=== PATIENT | female | born 1975 | race Hispanic/Latino ===

== ENCOUNTER 2023-02-22 16:44 | Emergency (ER) | payer SELFPAY ==
--- OUTSIDE RECORDS SUMMARY | 2023-02-22 16:48 | XMS REPORT | Continuity of Care Document ---
:1975 Author Organization [facility] t Address [address] [facility] [place] [address] Care Team Providers Name Role Phone Vance Zepeda DO Attending Clinician Lidia Ayala Attending Clinician [phone] LIDIA GOMEZ Attending Clinician Unavailable Doctor Unassigned, [place] Attending Clinician Unavailable CHERYLE CARTER Attending Clinician Unavailable Cheryle Carcamo Attending Clinician Payers Payer Name Policy Type Policy Number Effective Date Expiration Date S ource Problems Condition Condition Condition Status Onset Resolution Last Treating Co mments Source Name Details Category Date Date Treatment Clinician Date Other Other Disease Active 2020-0 Univers general general 8-28 ity of counseling counseling 00:00: Errol miller and advice and advice 00 [place] dical for [facility] contracept contracept rosemarie rosemarie management management History of History of Disease Active 2020-0 [place] tubal tubal 8-28 ity of ligation ligation 00:00: [address] Genital Genital Disease Active 2020-0 Univers warts warts 8-28 ity of 00:00: [place] 00 [facility] Pelvic Pelvic Disease Active 2019-0 Univers mass in mass in 8-13 ity of female female 00:00: [place] 00 [facility] Trichomona Trichomona Disease Active 2019-0 U nivers l l 8-01 ity of vulvovagin [place] 00 [facility] Menorrhagi Menorrhagi Disease Active 2019-0 U nivers a with a with 7-30 ity of regular regular 00:00: [place] cycle cycle 00 [facility] Well woman Well woman Disease Active 2019-0 U nivers exam exam 7-30 ity of 00:00: [place] 00 Medical Branch Breast Breast Disease Active 2019- Univers cancer cancer 7-30 [place] of screening [place] 00 Medical mammogram mammogram Bran ch Well woman Well woman Disease Active 2019- U nivers exam exam 7-30 ity of 00:00: [place] 00 Medical Branch Obesity Obesity Disease Active 2019- Univers (BMI (BMI 7-30 ity of 30-39.9) 30-39.9) 00:00: Medical Branch Tobacco Tobacco Disease Active 2019- Univers use use 7-30 ity of disorder disorder 00:00: [place] 00 Medical Branch H/O tubal H/O tubal Disease Active Uni vers ligation ligation 7-30 ity of 00:00: [place] [facility] Marijuana Marijuana Disease Active Uni vers abuse abuse 730 ity of 00:00: [place] 00 Medical Branch Menorrhagi Menorrhagi Disease Active U nivers a with a with 7-30 ity of regular regular 00:00: [place] cycle cycle 00 Medical Branch Breast Breast Disease Active Univers complaint complaint 730 ity of 00:00: [place] 00 Medical Branch Need for Need for Disease Active Unive rs diphtheria diphtheria 730 it y of -tetanus-p -tetanus[place]p [place] ertussis ertussis 00 Medica l (Tdap) (Tdap) Branch vaccine vaccine Allergies, Adverse Reactions, Alerts Allergy Allergy Status Severity Reaction(s) Onset Inactive Treating Comm ents Source Name Type Date Date Clinician NO KNOWN Drug Active Univers ALLERGIE Class ity of S [facility] Social History Social Habit Start Date Stop Date Quantity Comments Source History of tobacco 2003-12-13 Cigarette Smoker University of use 00:00:00 [facility] Exposure to Not sure [facility] SARS-CoV-2 (event) [facility] Tobacco use and 2020-01-11 2020-01-11 Never used Universit y of exposure 00:00:00 00:00:00 [facility] Cigarettes smoked 2020-01-11 2020-01-11 Univers ity of current (pack per 00:00:00 00:00:00 [place] ) - Reported Branch Alcohol intake 2020-01-11 2020-01-11 Current drinker Unive rsity of 00:00:00 00:00:00 of alcohol [facility] (finding) Branch History SDOH 2020-01-11 2020-01-11 2 University o f Alcohol Frequency 00:00:00 00:00:00 [place] M edical Branch [facility] 2020-01-11 2020-01-11 [address] [place] o f Alcohol Std Drinks 00:00:00 00:00:00 [place] [facility] History [facility] 2020-01-11 2020-01-11 99 [place] o f Alcohol Binge 00:00:00 00:00:00 [facility] al Branch Alcohol Comment 2018-12-12 2018-12-12 occasional Universit y of 00:00:00 00:00:00 [facility] Sex Ass[birth year] At [birth year] Universit y of 00:00:00 00:00:00 [facility] Smoking Status Start Date Stop Date Source Current every day smoker 2020-01-11 00:00:00 Uni versity [facility] Medications Ordered Filled Start Stop Current Ordering Indication Dosage Frequency Signature Comments Components Source Medication Medication Date Date Medication? Clinician (SIG) Name Name imiquimod 5 2020-0 Yes [id number] 1{packe Apply 1 Univers % cream 8-28 t} Each to ity of 00:00: [facility] 00 every Medical Tuesday, Branch Tuesday and Tuesday. At night imiquimod 5 2020-0 Yes [id number] 1{packe Apply 1 Univers % cream 8-28 t} Each to ity of 00:00: [facility] 00 every Medical Tuesday, Branch Tuesday and Tuesday. At night imiquimod 5 2020-0 Yes [id number] 1{packe Apply 1 Univers % cream 8-28 t} Each to ity of 00:00: [facility] 00 every Medical Tuesday, Branch Tuesday and Tuesday. At night imiquimod 5 2020-0 Yes [id number] 1{packe Apply 1 Univers % cream 8-28 t} Each to ity of 00:00: [facility] 00 every Medical Tuesday, Branch Tuesday and Tuesday. At night imiquimod 5 2020-0 Yes [id number] 1{packe Apply 1 Univers % cream 8-28 t} Each to ity of 00:00: [facility] 00 every Medical Tuesday, Branch Tuesday and Tuesday. At night imiquimod 5 2020-0 2020- No [id number] 1{packe Apply 1 Univers % cream 01-10 t} Each to ity of 00:00: 00:00 [facility] 00 :00 every Medical Tuesday, Branch Tuesday and Tuesday. At night imiquimod 5 2020- No [id number] 1{packe Apply 1 Univers % cream 01-10 t} Each to ity of 00:00: 00:00 [facility] 00 :00 every Medical Tuesday, Branch Tuesday and Tuesday. At night metroNIDAZO 2019- No [id number] 2000mg Take 4 Univers LE (FLAGYL) 12-14 tablets by i ty of 500 mg 00:00: 04:59 [place] tablet [place] :00 now for 1 Medical dose. Story metroNIDAZO 2018- No [id number] 2000mg Take 4 Univers LE (FLAGYL) 12-14 tablets by i ty of 500 mg 00:00: 04:59 [place] tablet 00 :00 now for 1 Medical dose. Story No known No [facility] No known No [facility] No known No [facility] No known No [facility] No [facility] No [facility] No known No Univers medications [facility] No known No Univers medications [facility] No known No Univers medications [facility] Vital Signs Vital Name Observation Time Observation Value Comments Source Systolic blood 2020-01-11 13:09:00 118 mm[Hg] Univer sity [facility] Diastolic blood 2020-01-11 13:09:00 80 [facility] 2020-01-11 13:09:00 73 [facility] Body temperature 2020-01-11 13:09:00 36.56 Cherise [facility] Respiratory rate 2020-01-11 13:09:00 16 /min [facility] Body height 2020-01-11 13:09:00 170.2 cm [facility] Body weight 2020-01-11 13:09:00 114.851 kg [facility] BMI 2020-01-11 13:09:00 39.66 kg/m2 Universi ty of [place] [facility] Systolic blood 2018-12-26 16:04:00 133 mm[Hg] Univer sity of pressure [place] [facility] Diastolic blood 2018-12-26 16:04:00 88 mm[Hg] Unive rsity of pressure [facility] Branch Heart rate 2018-12-26 16:04:00 72 /min Universi ty of [facility] Branch Body temperature 2018-12-26 16:04:00 36.17 Cherise Univ ersity of [place] [facility] Respiratory rate 2018-12-26 16:04:00 16 /min Univ ersity of [facility] Branch Body height 2018-12-26 16:04:00 170.2 cm Universi ty of [place] [facility] Body weight 2018-12-26 16:04:00 115.837 kg Universi ty of [place] [facility] BMI 2018-12-26 16:04:00 40.00 kg/m2 Universi ty of [place] [facility] Systolic blood 2018-12-12 18:40:00 122 mm[Hg] Univer sity of pressure [place] [facility] Diastolic blood 2018-12-12 18:40:00 78 mm[Hg] Unive rsity of pressure [place] [facility] Heart rate 2018-12-12 18:40:00 62 /min Universi ty of [place] [facility] Body temperature 2018-12-12 18:40:00 36.56 Cherise Univ ersity of [place] [facility] Respiratory rate 2018-12-12 18:40:00 18 /min Univ ersity of [facility] Body height 2018-12-12 18:40:00 170.2 cm Universi ty of [place] [facility] Body weight 2018-12-12 18:40:00 115.781 kg Universi ty of [place] [facility] BMI 2018-12-12 18:40:00 39.98 kg/m2 Universi ty [facility] [place] [facility] Procedures Procedure Date / Time Performing Clinician Source Performed ASSIGNMENT OF BENEFITS 2020-01-11 12:55:47 Doctor Unassigned, No [facility] Name [facility] Branch TDAP (ADACEL) 2018-12-12 19:18:38 Cheryle Carter [facility] POCT TEST 2018-12-12 19:09:00 [facility] Encounters Start End Encounter Admission Attending Care Care Encounter Source Date/Time Date/Time Type Type Clinicians Facility Department ID 2020-08-23 2020-08-23 Outpatient [facility] [id number] Univers 12:30:00 12:30:00 ity [facility] 2020-08-02 2020-08-02 Outpatient [facility] [id number] Univers 12:15:00 12:15:00 ity [facility] 2020-07-31 2020-07-[address] [facility] [id number] Univers 00:00:00 00:00:00 Outreach Vance PRIMARY [id number] i ty of [facility] [id number] [place] [id number] [place] el[place] [address] Story 2020-04-16 2020-04-[address] [facility] [id number] Univers 00:00:00 00:00:00 Lidia Huitron SENIOR RESEARCH ENGINEER [id number] ity of REGIONAL [id number] [place] as MATERNAL [phone] Med ical & CHILD [address] [place] [address] 2020-04-14 2020-04-[address] [facility] [id number] Univers 09:15:00 09:15:00 LIDIA latif [facility] 2020-04-14 2020-04-[address] [facility] [id number] Univers 09:15:00 09:15:00 LIDIA mcdonald f [facility] 2020-02-26 2020-02-26 [facility] [id number] Univers 06:30:38 23:59:00 Encounter Lidia Huitron SPECIALTY [id number] ity of C[id number] [id number] [place] leeal [facility]CTORY [address] [facility] 2020-02-26 2020-02-[address] [facility] [id number] Univers 00:00:00 00:00:00 LIDIA marie o f [facility] 2020-01-14 2020-01-14 [facility] [id number] Univers 09:30:00 09:30:00 LIDIA latif [facility] 2020-01-11 2020-01-[address] [facility] [id number] Univers 07:58:01 09:02:48 Visit Lidia Huitron SENIOR RESEARCH ENGINEER [id number] ity of [facility] [id number] [place] MATERNAL [phone] [facility] ical & CHILD [address] [place] [address] 2020-01-11 2020-01-11 [facility] [id number] Univers 08:00:00 08:00:00 LIDIA frank harry latif [facility] 2020-01-11 2020-01-11 Orders Doctor HULL [id number] Univers 00:00:00 00:00:00 Only Unassigned, MICHOACANO [id number] ity of [place] [facility] [id number] [place] as [phone] [address] 2019-10-04 2019-10-04 [facility] [id number] Univers 00:00:00 00:00:00 CHERYLE marie [facility] 2019-10-03 2019-10-03 [facility] [id number] Univers 00:00:00 00:00:00 CHERYLE marie [facility] 2019-08-30 2019-08-30 [facility] [id number] Univers 00:00:00 00:00:00 CHERYLE marie [facility] 2019-08-06 2019-08-06 [facility] [id number] Univers 00:00:00 00:00:00 CHERYLE marie [facility] 2019-01-25 2019-01-[address] [facility] [id number] Univers 00:00:00 00:00:00 Cheryle Butler SENIOR RESEARCH ENGINEER [id number] it y of [facility] [id number] [place] MATERNAL [phone] [facility] [address] [place] [address] 2019-01-24 2019-01-24 [facility] [id number] [facility] 07:05:33 23:59:00 Encounter Cheryle Luke SPECIALTY [id number] ity of C[id number] [id number] [place] elmer SANON [address] [facility] 2018-12-26 2018-12-26 Office [facility] [id number] [facility] 10:52:24 11:26:43 Visit Cheryle Luke SENIOR RESEARCH ENGINEER [id number] it y of REGIONAL [id number] [place] MATERNAL [id number] Med ical & CHILD [address] [place] [address] 2018-12-14 2018-12-14 Telephone [facility] [id number] Univers 00:00:00 00:00:00 Cheryle Butler SENIOR RESEARCH ENGINEER [id number] it y of REGIONAL [id number] [place] MATERNAL [phone] Med ical & CHILD [address] [place] [address] 2018-12-14 2018-12-14 Telephone [facility] [id number] Univers 00:00:00 00:00:00 Cheryle Luke SENIOR RESEARCH ENGINEER [id number] it y of REGIONAL [id number] [place] MATERNAL [id number] Med ical & CHILD [address] [place] [address] 2018-12-13 2018-12-13 Telephone [facility] [id number] Univers 00:00:00 00:00:00 Cheryle Luke SENIOR RESEARCH ENGINEER [id number] it y of REGIONAL [id number] [place] MATERNAL [phone] Med ical & CHILD [address] [place] [address] 2018-12-12 2018-12-12 Office [facility] [id number] Univers 13:27:57 14:47:29 Visit Cheryle Butler SENIOR RESEARCH ENGINEER [id number] it y of REGIONAL [id number] [place] MATERNAL [phone] Med ical & CHILD [address] [place] [address] Results Test Description Test Time Test Comments Results Result Comments Source POCT TEST 2018-12-12 19:09:00 Test Item Value Reference Range Interpretation Comme nts POCT PREG (test code = 1605) Negative On board controls acceptable with C Line (test code = 3574) Yes POCT PREG LOT # (test code = 3575) POCT PREG TEST DATE (test code = 3576) [id number] 19:09:00 Test Item Value Reference Range Interpretation Comments POCT PREG (test code = 1605) Negative On board controls acceptable with C Yes Line (test code = 3574) POCT PREG LOT # (test code = 3575) POCT PREG TEST DATE (test code = 3576) [facility]
[2023-02-22] MEDS ORDERED: NITROGLYCERIN 0.4 MG/TAB SL ONE (18:17)
[2023-02-22] MEDS ORDERED: ASPIRIN 81 MG CHEWABLE TABLET ONE (18:17)
[2023-02-22 18:31] LABS: Absolute Lymphocytes (CBC) 3.4 K/uL (0.7-4.9); Hematocrit 41.2 % (36.0-45.0); Lymphocytes % 25.7 % (15.3-44.8); MCV 85.7 fL (80-100); MPV 8.5 fL (7.6-11.3); Platelets 374 thou/uL (152-406)
--- NOTE | 2023-02-22 18:41 | RAD REPORT ---
[facility] 6[facility]18 pm CLINICAL HISTORY: CHEST PAIN COMPARISON: No comparisons TECHNIQUE: Portable AP view of the chest. FINDINGS: The lungs are clear. No pneumothorax or effusion. The cardiomediastinal contours are unre markable. IMPRESSION: No acute cardiopulmonary process.
[2023-02-22 18:50] LABS: ALT/SGPT 33 U/L (13-56); AST/SGOT 20 U/L (15-37); Albumin 3.6 g/dL (3.4-5.0); Alkaline Phosphatase 130 U/L (45-117); BUN Blood Urea Nitrogen 9 mg/dL (7-18); Bicarbonate 24 mEq/L (21-32); Bilirubin Total 0.4 mg/dL (0.2-1.0); Glomerular Filtration Rate 72 ml/min (=/>90); Glucose Level 98 mg/dL (74-106); Magnesium 2.1 mg/dL (1.6-2.4); Potassium 3.3 mEq/L (3.5-5.1); Sodium Level 140 mEq/L (136-145)
[2023-02-22 18:54] LABS: Bilirubin Direct < 0.1 mg/dL (0-0.2); Bilirubin Indirect, Calculated ND mg/dL (0.2-0.8)
[2023-02-22] MEDS ORDERED: AMLODIPINE 10 MG TAB ONE (19:58)
--- NOTE | 2023-02-22 20:30 | ER ---
Nurse's Notes [facility] Name: Aurora Reynaga Age: 47 yrs Sex: Female : 1975 Arrival Date: 02/22/2023 Time: 16:44 Bed 15 Private MD: Diagnosis: Chest pain, unspecified;Essential (primary) hypertension Presentation: 02/22 16:58 Chief complaint:. Chief complaint: Patient states: Chest pains on/off for 3-4 days, nj1 today she checked her bp and was elevated. Never diagnosed with hypertension in the past. Denies chest pain as of right now. Coronavirus screen: Vaccine status: Patient reports receiving the 2nd dose of the covid vaccine. Ebola Screen: Patient denies travel to an Ebola-affected area in the 21 days before illness onset. Initial Sepsis Screen: Does the patient meet any 2 criteria? No. Patient's initial sepsis screen is negative. Does the patient have a suspected source of infection? No. Patient's initial sepsis screen is negative. Risk Assessment: Do you want to hurt yourself or someone else? Patient reports no desire to harm self or others. Onset of symptoms was February 17, 2023. 16:58 Method Of Arrival: Ambulatory [facility] 16:58 Acuity: RAFAT 3 nj1 Historical: - Allergies: 17:01 No Known Allergies; nj1 - PMHx: 17:01 None; nj1 - PSHx: 17:01 Cholecystectomy; nj1 - Immunization history:: Client reports receiving the 2nd dose of the Covid vaccine. - Social history:: Smoking status: Patient reports the use of cigarette tobacco products, Reported history of juuling and/or vaping. - Family history:: not pertinent. Screenin:28 [facility] ED Fall Risk Assessment (Adult) History of falling in the last 3 months, kc6 including since admission No falls in past 3 months (0 pts) Confusion or Disorientation No (0 pts) Intoxicated or Sedated No (0 pts) Impaired Gait No (0 pts) Mobility Assist Device Used No (0 pt) Altered Elimination No (0 pt) Score/Fall Risk Level 0 - 2 = Low Risk. Abuse screen: Denies threats or abuse. Denies injuries from another. Nutritional screening: No deficits noted. Tuberculosis screening: No symptoms or risk factors identified. Assessment: 18:29 General: Appears in no apparent distress. comfortable, Behavior is calm, cooperative, kc6 appropriate for age. Pain: Complains of pain in chest Pain does not radiate. Pain began 2-3 days ago. Neuro: Level of Consciousness is awake, alert, obeys commands, Oriented to person, place, time, situation, Appropriate for age. Cardiovascular: Reports chest pain, Heart tones S1 S2 present Capillary refill < 3 seconds Rhythm is sinus rhythm. Respiratory: Airway is patent Trachea midline Respiratory effort is even, unlabored, Respiratory pattern is regular, symmetrical, Denies shortness of breath. GI: No signs and/or symptoms were reported involving the gastrointestinal system. : No signs and/or symptoms were reported regarding the genitourinary system. EENT: No signs and/or symptoms were reported regarding the EENT system. Derm: No signs and/or symptoms reported regarding the dermatologic system. Skin is intact, is healthy with good turgor, Skin is pink, warm \T\ dry. Musculoskeletal: No signs and/or symptoms reported regarding the musculoskeletal system. Circulation, motion, and sensation intact. Capillary refill < 3 seconds, Range of motion: intact in all extremities. 19:12 Reassessment: Patient appears in no apparent distress at this time. Patient and/or jw7 family updated on plan of care and expected duration. Pain level reassessed. Patient is alert, oriented x 3, equal unlabored respirations, skin warm/dry/pink. Patient states feeling better. 20:41 Reassessment: Patient appears in no apparent distress at this time. No changes from [facility] previously documented assessment. Patient and/or family updated on plan of care and expected duration. Pain level reassessed. Patient is alert, oriented x 3, equal unlabored respirations, skin warm/dry/pink. Vital Signs: 16:58 BP 167 / 100; Pulse 77; Resp 18; Temp 98.4; Pulse Ox 100% ; Weight 120.2 kg; Height 5 nj1 ft. 7 in. ; Pain 0/10; 18:29 BP 157 / 97; Pulse 62; Resp 14 S; Pulse Ox 100% on R/A; Pain 0/10; kc6 19:30 BP 170 / 91; Pulse 71; Resp 20 S; Pulse Ox 100% on R/A; jw7 20:30 BP 160 / 90; Pulse 65; Resp 18 S; Pulse Ox 100% on R/A; jw7 16:58 Body Mass Index 41.50 (120.20 kg, 170.18 cm) nj1 16:58 Pain Scale: Adult nj1 18:29 Pain Scale: Adult kc6 ED Course: 16:49 Patient arrived in ED. kj1 16:54 Riki Davies MD is Attending Physician. rt 17:01 Triage completed. nj1 17:01 Arm band placed on left wrist. nj1 18:01 Bre Galeas RN is Primary Nurse. kc6 18:20 XRAY Chest (1 view) In Process Unspecified. EDMS 18:28 Patient has correct armband on for positive identification. Placed in gown. Bed in low kc6 position. Call light in reach. Side rails up X 1. Adult w/ patient. Client placed on continuous cardiac and pulse oximetry monitoring. NIBP monitoring applied. monitoring coordinator on. 18:28 Inserted saline lock: 22 gauge in right antecubital area, using aseptic technique. kc6 Blood collected. Patient maintains SpO2 saturation greater than 95% on room air. 19:53 Troponin High Sensitivity Sent. jw7 20:29 Haresh Montgomery MD is Referral Physician. rt 20:42 No provider procedures requiring assistance completed. IV discontinued, intact, jw7 bleeding controlled, No redness/swelling at site. Pressure dressing applied. 20:43 Provided Education on: discharge instructions, and medication usage. jw7 Administered Medications: 18:28 Drug: Aspirin PO Chewable Tablet 324 mg PO once; 81 mg tablets x 4 Route: PO; kc6 20:05 Follow up: Response: No adverse reaction jw7 19:53 Drug: amLODIPine PO 10 mg PO once Route: PO; jw7 20:43 Follow up: Response: No adverse reaction jw7 20:44 Not Given (Other Intervention Used): nitroglycerin0.4 mg Sublingual once; every five jw7 minute if needed x3 Medication: 20:43 VIS not applicable for this client. jw7 Outcome: 20:29 Discharge ordered by . rt 20:42 Discharged to home ambulatory, with family, jw7 20:42 Condition: stable 20:42 Discharge instructions given to patient, Instructed on discharge instructions, follow up and referral plans. medication usage, Demonstrated understanding of instructions, follow-up care, medications, Prescriptions given X 1, 20:44 Patient left the ED. jw7 Signatures: Dispatcher [employer] EDMS Almita Brock kj1 Edna Colon, RN RN jw7 Bre Galeas RN RN kc6 Riki Davies MD MD rt Karishma Baugh RN RN nj1 Corrections: (The following items were deleted from the chart) 19:57 19:12 Reassessment: Patient appears in no apparent distress at this time. No changes jw7 from previously documented assessment. Patient and/or family updated on plan of care and expected duration. Pain level reassessed. Patient is alert, oriented x 3, equal unlabored respirations, skin warm/dry/pink. jw7
--- NOTE | 2023-02-22 20:30 | EDPHYS ---
Physician Documentation [facility] Name: Aurora Reynaga Age: 47 yrs Sex: Female : 1975 Arrival Date: 02/22/2023 Time: 16:44 Bed 15 Private MD: ED Physician Riki Davies HPI: 02/22 19:35 This 47 yrs old Female presents to ER via Ambulatory with complaints of High rt Blood Pressure, Chest Pain. 19:36 Patient presents to the ED with chest pain started today. Patient states that the rt symptoms have improved, no longer has any chest pain. Does report having high blood pressure today at about 160s over 100s. No prior history of hypertension. Denies other acute complaints at this time, symptoms are moderate severity, no other aggravating elevating factors.. Historical: - Allergies: 17:01 No Known Allergies; nj1 - PMHx: 17:01 None; nj1 - PSHx: 17:01 Cholecystectomy; nj1 - Immunization history:: Client reports receiving the 2nd dose of the Covid vaccine. - Social history:: Smoking status: Patient reports the use of cigarette tobacco products, Reported history of juuling and/or vaping. - Family history:: not pertinent. ROS: 19:36 Constitutional: Negative for fever, chills, and weight loss, Respiratory: Negative for rt shortness of breath, cough, wheezing, and pleuritic chest pain, Abdomen/GI: Negative for abdominal pain, nausea, vomiting, diarrhea, and constipation, MS/Extremity: Negative for injury and deformity, Skin: Negative for injury, rash, and discoloration, Neuro: Negative for headache, weakness, numbness, tingling, and seizure, Psych: Negative for depression, anxiety, suicide ideation, homicidal ideation, and hallucinations, 19:36 Cardiovascular: Positive for chest pain, Negative for edema, Exam: 19:36 Constitutional: This is a well developed, well nourished patient who is awake, alert, rt and in no acute distress. Head/Face: Normocephalic, atraumatic. Chest/axilla: Normal chest wall appearance and motion. Nontender with no deformity. No lesions are appreciated. Cardiovascular: Regular rate and rhythm with a normal S1 and S2. No gallops, murmurs, or rubs. Normal PMI, no JVD. No pulse deficits. Respiratory: Lungs have equal breath sounds bilaterally, clear to auscultation and percussion. No rales, rhonchi or wheezes noted. No increased work of breathing, no retractions or nasal flaring. Abdomen/GI: Soft, non-tender, with normal bowel sounds. No distension or tympany. No guarding or rebound. No evidence of tenderness throughout. Skin: Warm, dry with normal turgor. Normal color with no rashes, no lesions, and no evidence of cellulitis. MS/ Extremity: Pulses equal, no cyanosis. Neurovascular intact. Full, normal range of motion. Neuro: Awake and alert, GCS 15, oriented to person, place, time, and situation. Cranial nerves II-XII grossly intact. Motor strength 5/5 in all extremities. Sensory grossly intact. Cerebellar exam normal. Normal gait. Psych: Awake, alert, with orientation to person, place and time. Behavior, mood, and affect are within normal limits. 19:36 ECG was reviewed by the Attending Physician. Vital Signs: 16:58 BP 167 / 100; Pulse 77; Resp 18; Temp 98.4; Pulse Ox 100% ; Weight 120.2 kg; Height 5 nj1 ft. 7 in. ; Pain 0/10; 18:29 BP 157 / 97; Pulse 62; Resp 14 S; Pulse Ox 100% on R/A; Pain 0/10; kc6 19:30 BP 170 / 91; Pulse 71; Resp 20 S; Pulse Ox 100% on R/A; jw7 20:30 BP 160 / 90; Pulse 65; Resp 18 S; Pulse Ox 100% on R/A; jw7 16:58 Body Mass Index 41.50 (120.20 kg, 170.18 cm) nj1 16:58 Pain Scale: Adult nj1 18:29 Pain Scale: Adult kc6 MDM: 17:05 Patient medically screened. rt 20:31 Differential diagnosis: Essential hypertension, acute coronary syndrome, nonspecific rt chest pain, pneumonia, pneumothorax. Data reviewed: vital signs, nurses notes. 20:59 Consideration of Admission/Observation Escalation of care including rt admission/observation considered. Low heart score, patient likely to benefit from admission, chest pain-free, 2 negative troponins, stable for outpatient care with cardiology. I considered the following discharge prescriptions or medication management in the emergency department Medications were administered in the Emergency Department. See JUL. Independent interpretation of the following test(s) in the Emergency Department X-Ray: My interpretation is No consolidation seen on interpretation of x-ray images. Scoring Tools HEART Score: History: Slightly Suspicious (0) ECG: Non specific repolarization disturbance/ LBTB/ PM (1) Age: < or = 45 years (0) Risk Factors: 1 or 2 Risk factors (1) Troponin: < or = 1 x Normal limit (0) Total Score = 1. Counseling: I had a detailed discussion with the patient and/or guardian regarding the historical points, exam findings, and any diagnostic results supporting the discharge/admit diagnosis, the presence of at least one elevated blood pressure reading (>120/80) during this emergency department visit, lab results, radiology results, the need for outpatient follow up, to return to the emergency department if symptoms worsen or persist or if there are any questions or concerns that arise at home. Response to treatment: the patient's symptoms have markedly improved after treatment. 02/22 17:06 Order name: Basic Metabolic Panel; Complete Time: 19:03 rt 02/22 17:06 Order name: CBC with Diff; Complete Time: 19:03 rt 02/22 17:06 Order name: LFT's; Complete Time: 19:03 rt 02/22 17:06 Order name: Magnesium; Complete Time: 19:03 rt 02/22 17:06 Order name: Troponin HS; Complete Time: 19:03 rt 02/22 19:28 Order name: Troponin High Sensitivity; Complete Time: 20:27 rt 02/22 17:06 Order name: XRAY Chest (1 view); Complete Time: 19:03 rt 02/22 17:06 Order name: EKG; Complete Time: 17:07 rt 02/22 17:06 Order name: Cardiac monitoring; Complete Time: 18:28 rt 02/22 17:06 Order name: EKG - Nurse/Tech; Complete Time: 18:28 rt 02/22 17:06 Order name: IV Saline Lock; Complete Time: 18:28 rt 02/22 17:06 Order name: Labs collected and sent; Complete Time: 18:28 rt 02/22 17:06 Order name: O2 Per Protocol; Complete Time: 18:28 rt 02/22 17:06 Order name: O2 Sat Monitoring; Complete Time: 18:28 rt EC:36 Rate is 60 beats/min. Rhythm is regular, Normal Sinus Rhythm with No ectopy. QRS [place] rt is Normal. SD interval is normal. QRS interval is normal. QT interval is normal. No Q waves. T waves are Inverted in lead aVF. No ST changes noted. Interpreted by me. Administered Medications: 18:28 Drug: Aspirin PO Chewable Tablet 324 mg PO once; 81 mg tablets x 4 Route: PO; kc6 20:05 Follow up: Response: No adverse reaction jw7 19:53 Drug: amLODIPine PO 10 mg PO once Route: PO; jw7 20:43 Follow up: Response: No adverse reaction jw7 20:44 Not Given (Other Intervention Used): nitroglycerin0.4 mg Sublingual once; every five jw7 minute if needed x3 Disposition Summary: 02/22/23 20:29 Discharge Ordered Notes: Location: Home rt Problem: new rt Symptoms: have improved rt Condition: Stable rt Diagnosis - Chest pain, unspecified rt - Essential (primary) hypertension rt Followup: rt - With: Haresh Montgomery MD - When: 2 - 3 days - Reason: Discharge Instructions: - Discharge Summary Sheet rt - Nonspecific Chest Pain, Adult rt - Hypertension, Adult rt Forms: - Medication Reconciliation Form rt - Thank You Letter rt - Antibiotic Education rt - Prescription Opioid Use rt - Patient Portal Instructions rt - Leadership Thank You Letter rt Prescriptions: - Norvasc 5 mg Oral tablet - take 1 tablet ORAL route once daily; 30 tablet; Refills: 0, Product Selection rt Permitted Signatures: Dispatcher [employer] Edna Ramirez RN RN jw7 Bre Galeas RN RN kc6 Riki Davies MD MD rt Karishma Baugh RN RN nj1
[2023-02-22 21:35] VITALS: TEMP 98.4; O2SAT 100
[2023-02-22 21:39] VITALS: BP 160/90
--- NOTE | 2023-02-23 12:36 | EKG ---
Test Date: 2023-02-22 Test Time: 18:10:01 Telehealth Coordinator: TAYLER MEASUREMENT RESULTS: Intervals: Rate: 60 DC: 148 QRSD: 102 QT: 420 QTc: 420 [place]: P: 43 DC: 148 QRS: -16 T: -17 INTERPRETIVE STATEMENTS: Normal sinus rhythm Nonspecific ST and T wave abnormality Abnormal ECG No previous ECG available for comparison Electronically Signed On 02-23-23 12:35:25 CDT by Haresh Montgomery
== END 2023-02-22 20:44 | disposition home or self-care (01) ==
LOC: ER 16:44
DX: I10 Essential (primary) hypertension (principal); Z72.0 Tobacco use
CPT/HCPCS: 36415; 71045; 80048; 80076; 83735; 84484; 85025; 93005; 99285

== ENCOUNTER 2023-06-28 07:58 | Day surgery (SDC) | payer OTHER ==
[2023-06-14 10:46] LABS: Absolute Lymphocytes (CBC) 2.8 K/uL (0.7-4.9); Lymphocytes % 23.9 % (15.3-44.8); MCV 87.4 fL (80-100); MPV 8.5 fL (7.6-11.3); Platelets 400 thou/uL (152-406); RBC Red Blood Cell Count 4.57 M/uL (3.86-4.86)
[2023-06-14 11:05] LABS: Potassium 3.4 mEq/L (3.5-5.1)
[2023-06-28] MEDS: Ringers Lactate 1,000 ML IV ONE (08:20)
[2023-06-28] MEDS ORDERED: LIDOCAINE 1% MPF 5 ML VIAL ONE (10:50)
[2023-06-28] MEDS ORDERED: FENTANYL CITR 100 MCG/2 ML ONE (10:50)
[2023-06-28] MEDS ORDERED: propofoL 200 MG/20 ML VIAL IV ONE ×2 (10:50→12:16)
[2023-06-28] MEDS ORDERED: MIDAZOLAM HCL 2 MG/2 ML INJ ONE (10:50)
[2023-06-28] MEDS ORDERED: ROCURONIUM 50 MG/5 ML VIAL IV ONE (10:50)
[2023-06-28] MEDS: AMPICILLIN SODIUM 2 GM/VIAL VIAL ONE (11:07)
[2023-06-28] MEDS: Gentamicin Inj 240 MG in NA CHLORIDE 0.9% 100 ML IV ONE (11:15)
[2023-06-28] MEDS ORDERED: dexAMETHasone 10 MG/ML VIAL ONE (11:22)
[2023-06-28] MEDS ORDERED: KETOROLAC 30 MG/ML INJ ONE (11:22)
[2023-06-28] MEDS ORDERED: ONDANSETRON 4 MG/2 ML VIAL ONE (11:22)
--- NOTE | 2023-06-28 13:02 | RAD REPORT ---
EXAM DESCRIPTION: RAD - Urethrocystogrphy Retrograde - 06/28/2023 12:58 pm CLINICAL HISTORY: CYSTO COMPARISON: No comparisons FINDINGS: Total fluoro time: 1 minutes 39 seconds
[2023-06-28] MEDS ORDERED: PHENAZOPYRIDINE 100MG TAB PO ONE ×2 (13:12→13:42)
[2023-06-28] MEDS ORDERED: HYDROCODONE/APAP 5/325 MG TAB PO PRN (13:12)
[2023-06-28 14:48] VITALS: BP 124/71; TEMP 98.4; O2SAT 95
--- NOTE | 2023-06-28 15:18 | OP ---
Surgeon: CHRIS STRICKLAND Preoperative Diagnoses: 1.Right ureterolithiasis. 2.Left staghorn renal calculus. Postoperative Diagnoses: 1.Right ureterolithiasis. 2.Left staghorn renal calculus. 3.Encrusted and retained right ureteral stent. 4.Ectopic left ureteral orifice. Principle Procedures: 1.Cystoscopy. 2.Right retrograde pyelography. 3.Complicated right ureteroscopy with extensive laser lithotripsy of retained ureteral stent, which was calcified. 4.Laser lithotripsy of renal and ureteral calculi. 5.Left ureteral stent placement. Indication For Procedure: Ms. Reynaga presented to the [facility]rology [facility], having previously been seen in the Emergency Department here locally, where she was transferred to another facility for stent place ment urgently. They were unable to identify the ureteral orifices in order to place the right ureter al stent associated with her obstructive right ureterolithiasis. As a result, she underwent placemen t of a right percutaneous ureteral stent. The proximal ureteral calculus was presumptively displaced at that time as subsequent imaging did not reveal it in the ureter instead noting a calculus within the lower pole of the right kidney. Additionally, she had significant calyceal distribution of stone burden consistent with a staghorn left renal calculus. As a result, she was counseled on the need f or ureteroscopic intervention to manage the right side, given the imperceptibility of the ureteral ca lculus but the potential it may still be present alongside the stent, but also to place a left ureter al stent to facilitate subsequent management of her staghorn renal calculus on that side. Of note, s he has elected to proceed with PCNL on that left side. Procedure In Detail: The patient was consented in the preoperative holding area before being transfe rred to the operative suite where general anesthesia was induced. She was given ampicillin 2 g and g entamicin 240 mg IV antimicrobial prophylaxis. Pneumo boots were provided for DVT prophylaxis. She was placed in the lithotomy position, padded and secured to the table appropriately. Her genitalia w ere prepped with Hibiclens and she was draped in standard fashion. The case was begun using a 22-[facility] rigid cystoscope to traverse the urethra and into the bladder. The bladder was decompressed of f luid and urine and then refilled with saline and surveyed. In fact, a bit of irrigation of the bladd er was performed. The stent was noted to emanate from the right ureteral orifice, and the tip of the stent was grasped using an alligator grasper and delivered to the meatus. I then passed a Sensor wi re via the stent, and the wire did navigate into the proximal most portion of the stent, but would no t emanate out the end of the coil of the stent. Attempts to manipulate the wire and pulled the stent under live fluoroscopic imagery were performed, but the proximal coil would not unfurl, and it would not come out with gentle traction. As a result, leaving the distal tip of the stent outside the howard tus, I applied a snap to keep it in place. I then utilized the cystoscope again placed into her blad gareth and a 5-Finnish ureteral access catheter to perform a retrograde pyelography study and confirm int egrity of the collecting system and ureter. Once contrast was injected via the lumen of the 5-Finnish ureteral access catheter and did propagate up the distal into the mid and proximal ureter before ent ering the renal pelvis without evidence of extravasation, I then navigated the 5-Finnish ureteral acce ss catheter all the way into the collecting system, placing a Sensor wire within it to try to hold op en the ureteral channel. While using the non flexible in the Bentson guidewire, I passed again via t he retained stent in order to try to unfurl the coil and pull it out, but despite this, the stent wou ld still not be removed. I then left the Sensor wire in place within the collecting system and remov ed the 5-Finnish ureteral access catheter. I passed a dual-lumen catheter over the Sensor wire and pa ssed the Bentson guidewire simultaneously alongside the Sensor wire into the collecting system with t he retained stent still in place. I then passed an 11 x 13-Finnish ureteral access sheath over the Be ntson guidewire into the proximal ureter until it met a point of resistance at the ureteropelvic junc tion. Leaving this in place, I again attempted to gently remove the retained stent, but it would not retract. As a result, I then utilized a flexible ureteroscope, passed via the ureteral access sheat h and a 272 nanometer laser fiber with a power setting of 1 joule and 15 hertz to then visualize the retained stent, which was noted to be significantly encrusted along the entirety of the proximal coil of the stent. So, utilizing the laser fiber at those settings, I then fragmented all of the stone d ust off the coil of the stent until it was essentially free of any stone burden. I then went ahead i nto the collecting system and surveyed each of the calyces. In the upper and mid pole calyces, ident ified some small calculi, which I also fragmented using the laser fiber. Once I had visually surveye d all of the calyces, I then injected contrast via the ureteroscope to ensure each of the calices had been adequately visualized, and once I confirmed this, I navigated back into the renal pelvis and jason villar performed laser lithotripsy on any stone dust remnant there. I then surveyed down into the proxi mal ureter where I again removed some additional calcification along the retained stent and some sy tional stone fragments were fragmented as well as I retracted the ureteral access sheath and the uret eroscope along the way surveying the entirety of the ureter along the way out. Once I had surveyed t he entirety of the ureter and fragmented any and all calculi fragments along the way, I then was able to easily remove the retained percutaneously placed ureteral stent. Once this was done, I then back -loaded the dual-lumen catheter. The dual-lumen catheter over the Sensor wire and passed a Bentson g uidewire via the second lumen of the dual-lumen catheter after again injecting contrast via the secon d lumen to confirm integrity of the entirety of the ureter and collecting system. Again, no extravas ation was noted along the entirety of the ureter or the collecting system. As a result, the Bentson wire was then placed alongside the Sensor wire, and I removed the dual-lumen catheter. I then back-l oaded the ureteroscope over the Bentson guidewire, navigated into the into the collecting system and again surveyed each of the calyces of the kidney, the renal pelvis and down into the proximal and mid as well as distal ureter on the way out, again fragmenting any calculi fragments larger than the siz e of the laser fiber. Once done, the ureteroscope was removed and laser lithotripsy was ended. Leav ing the Bentson guidewire in place at this point, I then turned my attention to the patient's left si de. Surveying the bladder in its entirety, no papillary mucosal lesions were noted. The ureteral orifice s were noted to be somewhat ectopic in location and very distal toward the opening of the bladder nec k on the right side; so, I surveyed a similar location on the contralateral position. The ureteral o rifices were not easily seen; so, I utilized the tip of the Sensor wire passed via the 5-Finnish urete ral access catheter eventually intubating a very tiny hole very distal toward the opening of the blad gareth neck, but this was indeed access into the collecting system. As such, I was able to advance the Sensor wire all the way into the collecting system using the staghorn calculi as a marker of successf ul wire placement. Over the wire, I then passed a 6-Finnish x 26 cm double-J ureteral stent with a co il observed fluoroscopically in the upper pole calyces and 1 cystoscopically formed in her bladder. I then removed the scope and back-loaded over the indwelling Bentson guidewire placed in the right co llecting system, and I again placed a 6-Finnish by 26 cm double-J ureteral stent on the right side wit h a coil observed fluoroscopically in the renal pelvis and 1 cystoscopically in her bladder. I then decompressed her bladder of fluid and urine, and a small amount of blood clot. She was then taken ou t of the lithotomy position, awakened from general anesthesia, transferred to a stretcher, and then t ransferred to the recovery room in good condition. Complications: None. Discharge Disposition: As previously discussed, she wishes to proceed with left PCNL. As a result, I will refer her to 1 of my colleagues at [facility] ([place]) to manage this down town as they have the requisite instrumentation lacking here locally. Meanwhile, given the trauma to the proximal ureter/UPJ associa jane with the encrusted retained right ureteral stent, I would like for her to keep this new stent for a minimum of 3 to 4 weeks, but a maximum of 6 weeks. We will then remove the cystoscopically in the office. Meanwhile, I will prescribe oxybutynin to manage the bladder spasms associated with stent d iscomfort, but she would likely benefit from initiating potassium citrate, which, provided by the nep hrologist when she is comfortable, unable to stop using the oxybutynin. Pending removal of the stent and management of left staghorn calculus. WR/MODL Voice ID: [id number] Report ID: [id number]
== END 2023-06-28 14:25 | disposition home or self-care (01) ==
LOC: OR 07:58
PROVIDERS: ATTEND Urology
PROC: 0TF48ZZ Fragmentation in Left Kidney Pelvis, Via Natural or Artificial Opening Endoscopic (ICD-10-PCS; 2023-06-28)
PROC: 0T778DZ Dilation of Left Ureter with Intraluminal Device, Via Natural or Artificial Opening Endoscopic (ICD-10-PCS; 2023-06-28)
PROC: 0TF68ZZ Fragmentation in Right Ureter, Via Natural or Artificial Opening Endoscopic (ICD-10-PCS; principal; 2023-06-28 09:45)
DX: N20.2 Calculus of kidney with calculus of ureter (principal)
CPT/HCPCS: 52356; 87088; 85025; 87086; 80048; 36415; 81025; 74450; 51610; J2704 ×2; J2001; J1580; J2250; J3010; J1100; J2405; J0290; J7120